=== PATIENT | female | born 1975 | race Two or more races ===

== ENCOUNTER 2016-09-23 12:00 | Emergency (ER) | payer MEDICAID ==
[~2016-09-23] VITALS: Ht 157.5 cm; Wt 100.0 kg
[~2016-09-23 12:00] MED LIST: NAPR-607 PO
[2016-09-23 12:17] VITALS: BP 163/78
[2016-09-23] MEDS ORDERED: KETOROLAC TROMETH 60MG/2ML VIAL IM ONE (16:15)
== END 2016-09-23 17:19 | disposition home or self-care (01) ==
LOC: ER 12:00
DX: R10.2 Pelvic and perineal pain (principal); G89.29 Other chronic pain; M54.5 Low back pain; N80.9 Endometriosis, unspecified; M51.36 Other intervertebral disc degeneration, lumbar region
CPT/HCPCS: 76856; 81002; 96372; 99284; J1885

== ENCOUNTER 2017-04-12 11:36 | Emergency (ER) | payer OTHER, MEDICAID ==
[~2017-04-12] VITALS: Ht 157.5 cm; Wt 99.8 kg
[2017-04-12 12:54] LABS: Basophils # (auto) 0 uL; Basophils % (auto) 0.3 % (0.0-2.0); CONDITION Y; Eosinophils # (auto) 0 uL; Eosinophils % (auto) 0.3 % (0.0-7.0); Hematocrit 42.5 % (36.0-46.0); Hemoglobin 14.3 g/dL (12.2-16.2); Lymphocytes # (auto) 1.8 uL; Lymphocytes % (auto) 16.4 % (10.0-50.0); Mean Corpuscular Hemoglobin 30.8 pg (28.0-32.0); Mean Corpuscular Hgb Conc. 33.6 g/dL (32.0-36.0); Mean Corpuscular Volume 91.7 fL (80.0-100.0); Monocytes # (auto) 0.8 uL; Monocytes % (auto) 6.9 % (0.0-12.0); Neutrophils # (auto) 8.4 uL; Neutrophils % (auto) 76.1 % (37.0-80.0); Platelet Count (auto) 279 10^3/uL (140-450); Red Cell Distribution Width 16.2 % (11.6-16.0)
[2017-04-12 13:37] LABS: Albumin 3.3 g/dL (3.4-5.0); Alkaline Phosphatase 76 U/L (45-117); Anion Gap 7 (5-15); Aspartate Aminotransferase 12 U/L (15-37); BUN/Creatinine Ratio 26.7; Bilirubin, Total 0.3 mg/dL (0.2-1.0); Blood Urea Nitrogen 16 mg/dL (7-18); Calcium 8.7 mg/dL (8.5-10.1); Carbon Dioxide 27 mmol/L (21-32); Chloride 106 mmol/L (98-107); GFR African American 142 mL/min; GFR Non-African American 118 mL/min; Glucose 78 mg/dL (74-106); Magnesium 2.5 mg/dL (1.6-2.6); Potassium 4.6 mmol/L (3.5-5.1); Sodium 140 mmol/L (136-145); Total Protein 7.4 g/dL (6.4-8.2)
[2017-04-12 15:35] VITALS: BP 194/109
[2017-04-12] MEDS ORDERED: cloNIDine HCL 0.1 MG TAB PO ONE (15:45)
== END 2017-04-12 17:59 | disposition home or self-care (01) ==
LOC: ER 11:36
DX: F41.9 Anxiety disorder, unspecified (principal); I10 Essential (primary) hypertension
CPT/HCPCS: 36415; 80053; 83735; 84484; 85025; 93005